=== PATIENT | male | born 2000 ===

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

== ENCOUNTER 2021-05-20 08:14 | Emergency (ER) | payer OTHER, SELFPAY ==
[2021-05-20 09:49] VITALS: BP 101/59; PULSE 52; RESP 16; TEMP 36.5; O2SAT 99; BMI 25.2
--- NOTE | 2021-05-20 10:57 | ED.BACK ---
HPI - Back Pain/Injury General Chief Complaint: Back Pain/Injury Stated Complaint: back pain Time Seen by Provider: 05/20/21 10:55 Source: patient Mode of arrival: ambulatory Limitations: no limitations History of Present Illness HPI Narrative: Patient presents ED for chronic lower back pain. Patient states since 15 years old after falling he has had chronic back pain ever since and on the left side back pain go down left leg. Patient denies any recent trauma, any abdominal pain, nausea, vomiting, fever, chills, dysuria, hematuria, testicular pain, or flank pain. Patient denies any urinary/bowel incontinence Related Data Previous Rx's Medication Instructions Recorded cyclobenzaprine 10 mg PO TID PRN #18 tab 05/20/21 naproxen 500 mg PO BID PRN #20 tab 05/20/21 Allergies Allergy/AdvReac Type Severity Reaction Status Date / Time No Known Allergies Allergy Verified 05/20/21 09:49 Review of Systems Review of Systems: Yes all other systems are reviewed and are negative Constitutional: Constitutional: Reports as per HPI and Reports no additional constitutional complaints Eyes: Eyes: Reports as per HPI and Reports no additional eye complaints ENT: Reports system reviewed and no additional complaints, except as documented and Reports as per HPI Cardiovascular: Cardiovascular: Reports as per HPI and Reports no additional cardiovascular complaints Respiratory: Respiratory: Reports as per HPI and Reports no additional respiratory complaints Gastrointestinal: Gastrointestinal: Reports as per HPI and Reports no additional gastrointestinal complaints Genitourinary: Genitourinary: Reports no additional male genitourinary complaints and Reports as per HPI Musculoskeletal: Musculoskeletal: Reports no additional musculoskeletal complaints, Reports as per HPI and Reports back pain Neurologic: Reports system reviewed and no additional complaints, except as documented and Reports as per HPI [facility] Social History Social History Alcohol intake: never Advance Directives: No Advance Directives Information Provided: No Physical Exam Vital Signs: Vital Signs: Last Vital Signs Temp 97.7 F 05/20/21 09:49 Pulse 52 05/20/21 09:49 Resp 16 05/20/21 09:49 BP 101/59 L 05/20/21 09:49 Pulse Ox 99 05/20/21 09:49 Body Mass Index 25.2 Const: General: cooperative, healthy appearing, comfortable, no acute distress, well developed, alert and awake HENMT: Head: Yes normal to inspection, Yes No palpable skull fracture present, Yes normocephalic and Yes atraumatic Eyes: General: appearance normal, both eyes and all related structures Neck: Neck: Yes normal visual inspection, Yes full ROM, Yes no lymphadenopathy, Yes no meningeal signs, Yes trachea midline, Yes supple and No tender Chest: Chest palpation & inspection: normal inspection of the chest and normal palpation of entire chest wall Resp: Effort & Inspection: normal respiratory effort and able to speak in complete sentences Auscultation: clear to auscultation bilaterally Cardio: Jugular venous distension: no JVD Heart sounds: S1 normal heart sound present and S2 normal heart sound present GI: Inspection: Yes normal to inspection and No abdominal wall ecchymosis Palpation (GI): Soft to palpation, not firm, nontender, no guarding and not rigid : General: No CVA tenderness and Yes no CVA tenderness Back/Spine/Pelvis: Back: no CVA tenderness, No CVA tenderness and back tenderness (Left lower lateral lumbar area. Negative for spine tenderness) Skin: General skin exam: no rashes or lesions noted and elasticity normal Neuro: General: patient oriented x3, gait normal, no meningeal signs and CN's II-XI intact bilaterally Cranial nerves: Yes CN's II-XII intact bilaterally Extrem: General: Yes normal to inspection and Yes full ROM Psych: Appearance: grossly normal, well kempt and not disheveled Course Course Course Narrative: No need for imaging. Patient denies any recent trauma. Reevaluation(s) Reevaluation #1: Patient will be discharged with naproxen and Flexeril. Patient told to follow up with PCP Time: 11:02 MDM - Back Pain/Injury MDM Narrative Medical decision making narrative: Chronic back pain. Sciatica Discharge Plan Discharge Clinical Impression: Sciatica, Chronic back pain Patient Disposition: Home, Self-Care Instructions: Sciatica (ED), Chronic Back Pain (DC) Additional Instructions: Please follow-up with your PCP. Return to the ED for worsening pain, urinary/bowel incontinence, abdominal pain, nausea, vomiting, fever, chills, flank pain, dysuria, hematuria, testicular pain, or any other concerning symptoms. Prescriptions: New naproxen 500 mg tablet 500 mg PO BID PRN (Reason: pain) Qty: 20 RF: 0 cyclobenzaprine 10 mg tablet 10 mg PO TID PRN (Reason: pain) Qty: 18 RF: 0 Stand Alone Forms: Work/School Release Interventions: ED Discharge Assessment Last Done: 05/20/21 11:19 Discharge Date/Time: 05/20/21 11:20 Print Language: Wolof
== END 2021-05-20 11:20 | disposition home or self-care (01) ==
PROVIDERS: Emergency Provider Emergency Medicine Emergency Medical Services
DX: G89.29 Other chronic pain (principal); M54.42 Lumbago with sciatica, left side
CPT/HCPCS: 99283

== ENCOUNTER 2021-09-28 16:43 | Emergency (ER) | payer OTHER, SELFPAY | END 2021-09-28 20:41 | disposition left against medical advice (07) | LOC: HO.ED 20:34 | PROVIDERS: Emergency Provider Emergency Medicine | DX: R68.89 Other general symptoms and signs (principal) ==

== ENCOUNTER 2021-09-29 17:21 | Emergency (ER) | payer OTHER, SELFPAY ==
--- NOTE | ~2021-09-29 | XR_ITS ---
EXAMINATION: XR CHEST CLINICAL INFORMATION: Cough COMPARISON: 08/31/2020 TECHNIQUE: Frontal view of the chest was obtained. FINDINGS: No significant abnormality is noted involving the heart, lungs, mediastinum, bony thorax or soft tissues. XR/XR chest 1V IMPRESSION: Unremarkable examination.
[2021-09-29 19:19] VITALS: BP 101/51; PULSE 85; RESP 16; TEMP 36.7; O2SAT 99; BMI 25.7
[2021-09-29 19:45] LABS: IDNOW Serial# 9DD0AD1C; Strep A Nucleic Acid Negative (Negative)
[2021-09-29 19:47] LABS: COVID-19 Test Negative (Negative)
[2021-09-29] MEDS: Acetaminophen 325 MG TABLET 650 MG PO (21:22)
[2021-09-29 23:11] VITALS: BP 121/61; PULSE 72; RESP 16; TEMP 37.1; O2SAT 98
--- NOTE | 2021-09-29 23:22 | ED.GENADULT ---
HPI - General Adult General Chief complaint: General Medical Stated complaint: Flu like symptoms Time Seen by Provider: 09/29/21 23:15 History of Present Illness HPI narrative: Patient complains of body aches feeling fatigued runny nose mild cough and is concerned because his brother who he has been around a lot is positive for COVID He has no shortness of breath or vomiting Related Data Previous Rx's Medication Instructions Recorded cyclobenzaprine 10 mg tablet 10 mg PO TID PRN #18 tab 05/20/21 naproxen 500 mg tablet 500 mg PO BID PRN #20 tab 05/20/21 Allergies Allergy/AdvReac Type Severity Reaction Status Date / Time No Known Allergies Allergy Verified 05/20/21 09:49 Review of Systems Review of Systems: Positive for runny nose body aches fatigue and cough Negatives are no fever no chills no dizziness no weakness no fainting no feeling faint no headache no stiff neck no sore throat no sinus pain no chest pain no shortness of breath no sputum no abdominal pain no nausea vomiting or diarrhea no skin rash Yes all other systems are reviewed and are negative PMFSH Past Medical History Source: nursing notes reviewed Social History Social History Alcohol intake: never Advance Directives: No Advance Directives Information Provided: No Physical Exam Vital Signs: Vital Signs: Last Vital Signs Temp 98.7 F 09/29/21 23:11 Pulse 72 09/29/21 23:11 Resp 16 09/29/21 23:11 BP 121/61 09/29/21 23:11 Pulse Ox 98 09/29/21 23:11 BMI result Body Mass Index 25.7 General appearance is no acute distress The eyes are clear with no redness or exudate The sinuses are nontender The pharynx is clear with no redness swelling or exudate, voice is normal, mucous membranes are moist Neck is supple Chest is clear to auscultation bilateral Heart no murmur Abdomen soft nontender Extremities full range of motion x4 Skin rash Course Course Course Narrative: COVID test was negative Strep test was negative Chest x-ray was normal no infiltrate Well-appearing patient was discharged Medical Decision Making Lab Data Labs: Lab Results 09/29/21 09/29/21 Range/Units 19:28 19:28 COVID-19 (ANAIS) Negative (Negative) COVID-19 Clin Com See Note S. pyogenes GrpA YOANNA Negative (Negative) Discharge Plan Discharge Clinical Impression: Acute viral syndrome Patient Disposition: Home, Self-Care Additional Instructions: COVID testing was negative for today, but because you had close exposure with someone who had COVID it may be too soon to get a positive results There is still a good chance he might have COVID so I would recommend isolating as best possible, wear mask when around other people and get another test in a few days Return to the ER any time for difficulty breathing any worse condition or any concerns Drink plenty of fluids and Tylenol or Motrin as needed for any fever or body aches Prescriptions: No Action naproxen 500 mg tablet 500 mg PO BID PRN (Reason: pain) Qty: 20 RF: 0 cyclobenzaprine 10 mg tablet 10 mg PO TID PRN (Reason: pain) Qty: 18 RF: 0
== END 2021-09-30 00:36 | disposition home or self-care (01) ==
PROVIDERS: Emergency Provider Emergency Medicine Emergency Medical Services
DX: B34.9 Viral infection, unspecified (principal); Z20.822 Contact with and (suspected) exposure to COVID-19; M79.10 Myalgia, unspecified site
CPT/HCPCS: 36415; 71045; 87635; 87651; 99283; 99284

== ENCOUNTER 2022-06-14 13:55 | Emergency (ER) | payer MEDICAID, SELFPAY ==
[2022-06-14 16:35] VITALS: BP 128/71; PULSE 94; RESP 16; TEMP 38.1; O2SAT 98; BMI 21.6
[2022-06-14] MEDS: Acetaminophen 325 MG TABLET 650 MG PO (16:42)
[2022-06-14 16:58] LABS: COVID-19 Test Positive (Negative)
[2022-06-14 17:01] LABS: Appearance Urine Clear; Color Urine Yellow; Glucose Urine UA Negative (Negative); Leukocyte Esterase Urine Negative (Negative); Nitrite Urine Negative (Negative); PH 6.5 (5.0-8.0); Specific Gravity - Urine >= 1.030 (1.005-1.025); Urine Blood Negative (Negative); Urine Ketones 80 mg/dL (Negative); Urine Protein 30 (1+) mg/dL (Neg-Trace)
[2022-06-14 17:03] LABS: Bacteria Urine None Seen (None Seen); Hyaline Casts Urine 0-2 /LPF (0-2); Squamous Epithelial Cell Urine 0-2 /HPF (0-2); WBC Urine 0-5 /HPF (0-5)
--- NOTE | 2022-06-14 19:08 | ED_ITS ---
HPI - Headache General Chief Complaint: Headache Stated Complaint: migraine, lower back pain, pain in legs Time Seen by Provider: 06/14/22 19:08 Source: patient Mode of arrival: ambulatory Limitations: no limitations History of Present Illness HPI Narrative: 22-year-old healthy male presents to the ER for evaluation back pain and headache. He reports the pain started after playing basketball yesterday. He frequently gets back pains after he does physical activity but this feels different. He states the pain is to the right of his spine and goes from the lower back all the way up. It is worse with movement and rotation. He denies any falls or trauma. He denies any urinary symptoms. He is going to be febrile in triage. He also reports a headache. MD elicited complaint: headache and other (Back pain) Onset (ago): day(s) (1) Onset description: gradually Location: generalized Severity: moderate Quality & Timing: aching and throbbing Exacerbating factors: none Relieving factors: nothing Associated symptoms: fever Treatments prior to arrival: none Related Data Previous Rx's Medication Instructions Recorded cyclobenzaprine 10 mg tablet 10 mg PO TID PRN pain #18 tabs 05/20/21 naproxen 500 mg tablet 500 mg PO BID PRN pain #20 tabs 05/20/21 Allergies Allergy/AdvReac Type Severity Reaction Status Date / Time No Known Allergies Allergy Verified 05/20/21 09:49 Review of Systems Review of Systems: Constitutional: No Fever, No Chills ENT/Mouth: No sore throat, No Rhinorrhea, No Swallowing Difficulty Cardiovascular: No Chest Pain, No SOB, No Orthopnea, No Edema Respiratory: No Cough, No Sputum Gastrointestinal: No Nausea, No Vomiting, No Diarrhea, No abdominal Pain Genitourinary: No Dysuria, No Urinary Frequency, No Hematuria Musculoskeletal: No joint pain, + Myalgias Skin: No Skin Lesions, No rash Neuro: No Weakness, No Numbness, No Dizziness, +Headache Psych: No Anxiety/Panic, No Depression Heme/Lymph: No Bruising, No Lymphadenopathy Endocrine: No Polyuria, No Polydipsia PMFSH Social History Social History Alcohol intake: never Advance Directives: No Advance Directives Information Provided: No Physical Exam Vital Signs: Vital Signs: Last Vital Signs Temp 100.5 F H 06/14/22 16:35 Pulse 94 06/14/22 16:35 Resp 16 06/14/22 16:35 BP 128/71 06/14/22 16:35 Pulse Ox 98 06/14/22 16:35 O2 Del Method 06/14/22 16:35 BMI result Body Mass Index 21.6 Appearance: Alert. Oriented X3. No acute distress. Eyes: Pupils equal, round and reactive to light. ENT: Pharynx normal. Neck: Normal inspection. Neck supple. CVS: Normal heart rate and rhythm. Pulses normal. Respiratory: No respiratory distress. Breath sounds normal. Back: Normal inspection. Soft tissue tenderness and spasm to the right paraspinous muscles. No midline tenderness. Pain with rotation to the left. No CVA tenderness. Skin: Skin warm and dry. Normal skin color. Normal skin turgor. No rashes. Extremities: No lower extremity edema. Neuro: Oriented X 3. No motor deficit. No sensory deficit. Steady gait. Course Course Course Narrative: 22-year-old male presents to the ER with back pain, headache, found to have low- grade fever in triage. He has no urinary symptoms. His back pain is consistent muscle strain and spasm, palpable spasm on examination. He was found to be COVID positive. His symptoms are very mild. He is stable for discharge home with NSAID and muscle relaxer. Stable for DC MDM - Headache Lab Data Labs: Lab Results 06/14/22 06/14/22 Range/Units 16:41 16:49 Urine Color Yellow Urine Appearance Clear Urine pH 6.5 (5.0-8.0) Ur Specific [place] >= 1.030 H (1.005-1.025) Urine Protein 30 (1+) H (Neg-Trace) mg/dL Urine Glucose (UA) Negative (Negative) mg/dL Urine Ketones 80 (Negative) mg/dL Urine Blood Negative (Negative) Urine Nitrite Negative (Negative) Ur Leukocyte Esterase Negative (Negative) Urine RBC 3-5 H (0-2) /HPF Urine WBC 0-5 (0-5) /HPF Ur Squamous Epith Cells 0-2 (0-2) /HPF Urine Bacteria None Seen (None Seen) Hyaline Casts 0-2 (0-2) /LPF COVID-19 (ANAIS) Positive A (Negative) COVID-19 Clin Com See Note Critical Care Time Critical Care Time Critical Care Time: No Discharge Plan Discharge Clinical Impression: COVID-19, Muscle spasm, Lumbar strain Patient Disposition: Home, Self-Care Instructions: Covid-19 Viral Syndrome and Novel Coronavirus (ED) Hey/Ath, Low Back Strain (ED), Lower Back Exercises (ED) Additional Instructions: Your found to be COVID-19 positive today. Drink plenty of fluids. Take Tylenol around the clock for fevers and back pain. Take [id number] cold and flu medicine as needed for your symptoms. Rest. No strenuous activity. No bending, lifting or twisting. Use ice several times per day for 20 minutes at a time for the next 48 hours and then change to heat. Take medications as prescribed to help with pain and discomfort. Follow up with your Primary Care Doctor this week. If you develop new or worsening symptoms call 911 or come back to the ER for further evaluation. Prescriptions: No Action naproxen 500 mg tablet 500 mg PO BID PRN (Reason: pain) Qty: 20 0RF cyclobenzaprine 10 mg tablet 10 mg PO TID PRN (Reason: pain) Qty: 18 0RF Rx Instructions: side effect is drowsiness. Do not take at work or while driving. Interventions: ED Discharge Assessment Last Done: 06/14/22 19:41 Discharge Date/Time: 06/14/22 19:42
[2022-06-14] MEDS: Ibuprofen 600 MG TABLET PO (19:38)
[2022-06-14] MEDS: Cyclobenzaprine HCl 10 MG TABLET PO (19:38)
== END 2022-06-14 19:42 | disposition home or self-care (01) ==
PROVIDERS: Emergency Provider Emergency Medicine
DX: U07.1 COVID-19 (principal); G43.909 Migraine, unspecified, not intractable, without status migrainosus; M54.50 Low back pain, unspecified; Z79.899 Other long term (current) drug therapy
CPT/HCPCS: 81001; 81003; 87635; 99283

== ENCOUNTER 2022-08-16 16:46 | Emergency (ER) | payer OTHER, SELFPAY ==
--- NOTE | ~2022-08-16 | XR_ITS ---
EXAMINATION: XR ANKLE, RIGHT CLINICAL INFORMATION: Fall pain in right ankle COMPARISON: X-rays July 2016 TECHNIQUE: AP, lateral, and mortise views of the right ankle. FINDINGS: The bones and soft tissues are normal. No fracture. Alignment is anatomic. Joint spaces are maintained. No joint effusion. XR/XR ankle RT 2V IMPRESSION: Normal right ankle.
[2022-08-16 18:33] VITALS: BP 115/46; PULSE 63; RESP 18; TEMP 36.8; O2SAT 97; BMI 22.4
--- NOTE | 2022-08-16 19:28 | ED_ITS ---
HPI - Extremity Injury (Lower) General Chief Complaint: Extremity Injury, Lower Stated Complaint: Ankle injury at work Time Seen by Provider: 08/16/22 19:26 Source: patient Mode of arrival: ambulatory Limitations: no limitations History of Present Illness HPI Narrative: This is a 22-year-old male no significant medical history presents to the emergency department complaints of right ankle pain patient tells me yesterday he was walking up some stairs his right ankle gave out, ruled out words, at that time he was carrying a 50 lb box he reports that he immediately started experiencing pain and swelling to the right ankle. He tells me he has broken this ankle in the past so he is worried maybe he had a broken ankle again. Reports pain with ambulation, better at rest. Tells me he has been ambulatory since the injury however ambulating with a limp. Denies numbness or tingling. Related Data Previous Rx's Medication Instructions Recorded cyclobenzaprine 10 mg tablet 10 mg PO TID PRN pain #18 tabs 05/20/21 naproxen 500 mg tablet 500 mg PO BID PRN pain #20 tabs 05/20/21 Allergies Allergy/AdvReac Type Severity Reaction Status Date / Time No Known Allergies Allergy Verified 08/16/22 18:33 Review of Systems Review of Systems: Constitutional : No Weight loss, No Fever, No Chills, No Fatigue, No Malaise ENT/Mouth : No sore throat, No Rhinorrhea Eyes: No Eye Pain, No Swelling, No Redness Cardiovascular : No Chest Pain, No SOB, No Dyspnea on Exertion, No Orthopnea, No Edema, No Palpitations Respiratory : No Cough, No Sputum, No Wheezing Gastrointestinal : No Nausea, No Vomiting, No Diarrhea, No Constipation, No abdominal Pain, No Hematochezia, No Melena Genitourinary : No Dysuria, No Urinary Frequency, No Hematuria, Musculoskeletal : + joint pain, No Myalgias, + Joint Swelling Skin : No Skin Lesions, No rash Neuro : No Weakness, No Numbness, No Dizziness, No Headache All other systems reviewed and are negative Yes all other systems are reviewed and are negative [facility] Past Medical History Attestation statement: The following information was validated with the patient. Source: old records reviewed and nursing notes reviewed Social History Social History Alcohol intake: never Advance Directives: No Advance Directives Information Provided: No Physical Exam Vital Signs: Vital Signs: Last Vital Signs Temp 98.3 F 08/16/22 18:33 Pulse 63 08/16/22 18:33 Resp 18 08/16/22 18:33 BP 115/46 L 08/16/22 18:33 Pulse Ox 97 08/16/22 18:33 O2 Del Method 08/16/22 18:33 BMI result Body Mass Index 22.4 vss Appearance: Alert.? Oriented X3.? No acute distress.? Head: Normocephalic, atraumatic, no step-offs or deformities Eyes: Pupils equal, round and reactive to light.? CVS: Normal heart rate and rhythm.? Pulses normal.? Respiratory: No respiratory distress.? Breath sounds normal.? Abdomen: Soft and nontender.? Skin: Skin warm and dry.? Normal skin color.? Normal skin turgor.? Extremities: 5/5 strength to bilateral upper and lower extremities full range of motion to bilateral ankles however painful range of motion to right ankle. There is swelling noted overlying the right ankle. Pain with palpation to medial and lateral malleolus of right ankle. Normal left ankle. 2+ dorsalis pedis anterior tibialis and posterior tibialis pulses. Normal sensation to bilateral lower extremities. Capillary refill less than 2 seconds to bilateral lower extremities. Patient ambulating with a limp favoring his left side. No foot drop. DTR 2+ b/l Neuro: Oriented X 3.? No motor deficit.? No sensory deficit. CN 2-12 intact Course Reevaluation(s) Reevaluation #1: Normal x-ray of the right ankle. At this time patient will be discharged home with an Aircast, crutches. Advised to return with new or worsening symptoms educated him on rice, advised to follow-up with orthopedics. Comfortable discharge home. Time: 19:32 MDM - Extremity Injury (Lower) [facility] Narrative Medical decision making narrative: 1929 22 year old male presents with right ankle pain sp rolling ankle at work Right ankle with overlying swelling and pain with palpation of medial and lateral malleolus. Normal pulses. Normal capillary refill. Neurovascularly intact. Concerns for sprain versus strain. Unlikely fracture dislocation. Plan at this time is to obtain plain film Medical Records Attestation: I reviewed the patient's medical records. Lab Data Attestation: I reviewed the patient's lab results. Critical Care Time Critical Care Time Critical Care Time: No Discharge Plan Discharge Clinical Impression: Ankle sprain and strain, Work related injury Patient Disposition: Home, Self-Care Instructions: Ankle Sprain (ED), Ankle Stirrup Splint (ED), R.I.C.E. Treatment (ED), Ice Pack Application (ED) Additional Instructions: Take your medications as prescribed. If you were prescribed antibiotics today, it is important that you take your medication to their entirety, do not skip any doses, do not finish them early. Follow-up with your primary care provider this week. Return to the emergency department with new or worsening symptoms. Such as fevers, chills, chest pain, shortness of breath, nausea, vomiting, dizziness, headache, vision changes, lethargy, numbness, tingling In case of emergency call 911 Your x-ray shows no acute fractures, dislocations. If pain persists she may require an MRI to look for ligament or tendon injury. Rest, ice, compress, elevate extremity. You can take ibuprofen every 6 hours, Tylenol every 4 as needed for pain or discomfort. Use crutches as indicated. Wear your Aircast during the day, do not sleep with it on. Use for 5-7 days Follow up with the work connection as this was a work related injury XR/XR ankle RT 2V IMPRESSION: Normal right ankle. Prescriptions: No Action naproxen 500 mg tablet 500 mg PO BID PRN (Reason: pain) Qty: 20 0RF cyclobenzaprine 10 mg tablet 10 mg PO TID PRN (Reason: pain) Qty: 18 0RF Rx Instructions: side effect is drowsiness. Do not take at work or while driving. Referrals: Physician,None [Physician] - [facility] [place] [facility] [Provider Group] - 1 week Stand Alone Forms: Work/School Release
[2022-08-16] MEDS: Acetaminophen 325 MG TABLET 650 MG PO (20:12)
== END 2022-08-16 20:17 | disposition home or self-care (01) ==
PROVIDERS: Emergency Provider Internal Medicine; PCP Pediatrics
DX: S93.401A Sprain of unspecified ligament of right ankle, initial encounter (principal); W10.9XXA Fall (on) (from) unspecified stairs and steps, initial encounter; Y93.9 Activity, unspecified; Y92.9 Unspecified place or not applicable; Y99.0 Civilian activity done for income or pay; Z79.899 Other long term (current) drug therapy
CPT/HCPCS: 73600; 99283

== ENCOUNTER 2023-01-13 21:10 | Emergency (ER) | payer OTHER, SELFPAY ==
[2023-01-13 21:42] VITALS: BP 116/71; PULSE 91; RESP 18; TEMP 38.4; O2SAT 98; BMI 21.6
[2023-01-13] MEDS: Acetaminophen 325 MG TABLET 975 MG PO (21:56)
[2023-01-13 22:35] LABS: Influenza A PCR NEGATIVE (Negative); Influenza B PCR NEGATIVE (Negative); Resp Syncy Virus RNA Qual PCR NEGATIVE (Negative); SARS COV2 PCR INHOUSE POSITIVE (Negative)
--- OUTSIDE RECORDS SUMMARY | 2023-01-14 00:19 | XMS_ITS | Referral Summary ---
:2000 Author Organization [facility] Address [address] [place] [id number] Care Team Providers Name Role Phone Aries Martinez MD, Rey Waters Primary Care Physician [phone] Encounter FIN Number [id number] Date(s): 02/24/21 - 05/02/[address] [id number] [facility] [phone] Discharge Disposition: 01 Home (with or w/o IV fusion or DME) Attending Physician: Giuseppe Villalta MD Allergies, Adverse Reactions, Alerts Substance Reaction Severity Status penicillin rash Severe Active cefepime rash Severe Active cephalosporins rash Severe Active Medications Adderall XR 10 mg oral capsule, extended release 1 cap(s), 10 mg, Capsule Extended Release, Oral, QAM, Number of Refills: 0 Start Date: 04/01/18 Status: Ordered Problem List Condition Effective Dates Status 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
--- OUTSIDE RECORDS SUMMARY | 2023-01-14 00:19 | XMS_ITS | Referral Summary ---
:2000 Author Organization Address [address] [place] [id number] Care Team Providers Name Role Phone PCP, None Primary Care Physician Unavailable Encounter FIN Number [id number] Date(s): 05/11/22 - 05/11/[address] [address] [facility] [phone] Discharge Disposition: 01 Home (with or w/o IV fusion or DME) Attending Physician: Giuseppe Villalta MD Allergies, Adverse Reactions, Alerts Substance Reaction Severity Status penicillin rash Severe Active cefepime rash Severe Active cephalosporins rash Severe Active Medications No Known Medications Problem List Condition Effective Dates Status 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) Diagnosis Diagnosis Type Effective Dates Health Clinical Infor mant Status Service Transverse Working 05/11/22 Non-Specified deficiency lower Diagnosis limb - knee level Vital Signs Most recent to oldest [Reference Range]: 1 Height 166.8 cm (05/11/22 10:14 AM) Height NOT Growth Chart 166.8 cm (05/11/22 10:14 AM) Converted Height NOT Growth Chart 5.5 ft (05/11/22 10:14 AM) Weight 59.8 kg (05/11/22 10:14 AM) Weight NOT Growth Chart 59.8 kg (05/11/22 10:14 AM) Converted Weight NOT Growth Chart 131.84 lb(s) (05/11/22 10:14 AM) Body Mass Index 21.49 kg/m2 (05/11/22 10:14 AM) Body Mass Index NOT Growth Chart 21 (05/11/22 10:14 AM) Body surface area 1.6646 m2 (05/11/22 10:14 AM) Social History Social History Type Response Smoking Status Never smoker; Type: Cigarett es entered on: 05/11/14 Sex Male
--- OUTSIDE RECORDS SUMMARY | 2023-01-14 00:19 | XMS_ITS | Referral Summary ---
:2000 Author Organization [facility] Address [address] [place] [phone] Care Team Providers Name Role Phone Aries Martinez MD, Rey Waters Primary Care Physician Encounter FIN Number [id number] Date(s): 02/24/21 - 05/02/[address] [address] [facility] [phone] Discharge Disposition: 01 Home (with or w/o [...]
--- OUTSIDE RECORDS SUMMARY | 2023-01-14 00:19 | XMS_ITS | Referral Summary ---
:[address] [facility] Address [address] [place] [phone] Care Team Providers Name Role Phone Aries Martinez MD, Rey Waters Primary Care Physician Encounter FIN Number [id number] Date(s): 02/24/21 - 05/02/[address] [address] [facility] [phone] Discharge Disposition: 01 Home (with or w/o [...]
--- OUTSIDE RECORDS SUMMARY | 2023-01-14 00:19 | XMS_ITS | Referral Summary ---
:2000 Author Organization [facility] Address [address] [place] [phone] Care Team Providers Name Role Phone Aries Martinez MD, Rey Waters Primary Care Physician Encounter FIN Number [id number] Date(s): 02/24/21 - 05/02/[address] [address] [facility] [phone] Discharge Disposition: 01 Home (with or w/o [...]
--- OUTSIDE RECORDS SUMMARY | 2023-01-14 00:19 | XMS_ITS | Continuity of Care Document ---
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
1 Active [facility] aspartate 2.5 MG / cap(s), [facility] Amphetamine Sulfate mg, 2.5 MG / Capsule Dextroamphetamine Extended saccharate 2.5 MG / Release, Dextroamphetamine Oral, QAM, Sulfate 2.5 MG Number of Extended Release Refills: 0 Capsule [Adderall] Allergies, Adverse Reactions, Alerts Substance Category Reaction Severity Reaction Status Date Comments S ource type Reported penicillin Drug rash Active [facility] cefepime Drug rash Active [facility] cephalosporins Drug rash Active [facility] Immunizations Immunization Date Given Site Status Last Updated Comments Mónica rce Results Order Name Results Value Reference Range Date Interpretation Commen ts Source Vital Signs Vital Sign Value Date Comments Source Height NOT Growth Chart 166.8 cm 05/11/2022 [facility] Converted Height NOT 5.5 [ft_i] 05/11/2022 [facility] Growth Chart Weight NOT Growth Chart 59.8 kg 05/11/2022 [facility] Body surface area 1.6646 m2 05/11/2022 [facility] Converted Weight NOT 131.84 [lb_ap] 05/11/2022 [facility] Growth Chart Body Mass Index NOT 21 05/11/2022 [facility] Growth Chart Height in cms. 166.8 cm 05/11/2022 [facility] Weight in kgs 59.8 kg 05/11/2022 [facility] Body Mass Index 21.49 kg/m2 05/11/2022 [facility] Encounters Location Location Encounter Encounter Reason Attending ADM DC Stat us Source Details Type Number For Provider Date Date Visit [facility] [id number] Giuseppe 02/24 05/03 [facility] Ambar WILDER /[address] [facility] [id number] Giuseppe 05/11 05/12 [facility] Ambar WILDER /2021 [facility] Procedures Procedure Code Date Perfomer Comments Source
--- OUTSIDE RECORDS SUMMARY | 2023-01-14 00:19 | XMS_ITS | Referral Summary ---
:2001 Author Organization [facility] Address [address] [place] [phone] Care Team Providers Name Role Phone PCP, None Primary Care Physician Unavailable Encounter FIN Number [id number] Date(s): 05/11/22 - 05/11/[address] [address] [facility] [phone] Discharge Disposition: 01 Home (with or w/o [...]
--- NOTE | 2023-01-14 00:26 | ED.GENADULT ---
HPI - General Adult General Chief complaint: Fever Stated complaint: Covid Symptoms/+Test at home Time Seen by Provider: 01/14/23 00:26 Source: patient Mode of arrival: ambulatory Limitations: no limitations History of Present Illness HPI narrative: Patient comes emergency room complaining of 24 hours body aches, runny nose, subjective fever, patient had a positive COVID test at home. Denies nausea vomiting or diarrhea. Related Data Previous Rx's Medication Instructions Recorded cyclobenzaprine 10 mg tablet 10 mg PO TID PRN pain #18 tabs 05/20/21 naproxen 500 mg tablet 500 mg PO BID PRN pain #20 tabs 05/20/21 ibuprofen 600 mg tablet 600 mg PO TID PRN fever or pain 01/14/23 #20 tabs nirmatrelvir 300 mg (150 mg See Rx Instructions PO .COMPLEX 01/14/23 x2)-ritonavir 100 mg tablet,dose #30 ea pack(EUA) (Paxlovid) Allergies Allergy/AdvReac Type Severity Reaction Status Date / Time No Known Allergies Allergy Verified 08/16/22 18:33 Review of Systems Review of Systems: Constitutional : No Weight loss, complaining of subjective fever and chills No Night Sweats, No Fatigue, complaining of body aches ENT/Mouth : No Hearing loss, No Ear Pain, No Nasal Congestion, No Sinus Pain, No Hoarseness, complaining of sore throat, No Rhinorrhea, No Swallowing Difficulty Eyes: No Eye Pain, No Swelling, No Redness, No Foreign Body, No Discharge, No Vision Changes Cardiovascular : No Chest Pain, No SOB, No Dyspnea on Exertion, No Orthopnea, No Edema, No Palpitations Respiratory : No Cough, No Sputum, No Wheezing, No Smoke Exposure, No Dyspnea Gastrointestinal : No Nausea, No Vomiting, No Diarrhea, No Constipation, No abdominal Pain, No Hematochezia, No Melena Genitourinary : no irregular bleeding, No Dysuria, No Urinary Frequency, No Hematuria, No Urinary Incontinence, No Urgency, No Flank Pain, No Urinary Flow Changes, No Hesitancy Musculoskeletal : No joint pain, No Myalgias, No Joint Swelling Skin : No Skin Lesions, No rash Neuro : No Weakness, No Numbness, No Paresthesias, No Loss of Consciousness, No Dizziness, No Headache Psych : No Anxiety/Panic, No Depression, No SI/HI/AH/VH, No Social Issues, Heme/Lymph: No Bruising, No Bleeding,No Lymphadenopathy Endocrine : No Polyuria, No Polydipsia, No Temperature Intolerance [facility] Social History Social History Alcohol intake: never Advance Directives: No Physical Exam ED Vital Signs: Vital Signs - 24 hr 01/13/23 21:42 Temperature 101.1 F H Pulse Rate 91 Respiratory Rate 18 Blood Pressure 116/71 Pulse Oximetry 98 Oxygen Delivery Method Room Air BMI result Body Mass Index 21.6 Const Other: Appearance: Alert. Oriented X3. No acute distress. Well appearing Eyes: Pupils equal, round and reactive to light. ENT: Pharynx normal. Neck: Normal inspection. Neck supple. No lymph nodes noted. No crepitus CVS: Normal heart rate and rhythm. Pulses normal. Normal S1 and S2 Respiratory: No respiratory distress. Breath sounds normal. No Wheezing. No rales Abdomen: Soft and nontender. No rigidity. No distention. Skin: Skin warm and dry. Normal skin color. Normal skin turgor. Extremities: No lower extremity edema. No Lacerations. No Rash Neuro: Oriented X 3. No motor deficit. No sensory deficit. Moving all extremities. No slurred speech. CN 2 through 12 grossly intact Psych: calm, cooperative, normal affect Medications Administered Discontinued Medications Generic Name Dose Route Start Last Admin Trade Name Freq PRN Reason Stop Dose Admin Acetaminophen 975 mg 01/13/23 21:51 01/13/23 21:56 Acetaminophen 325 Mg Tablet PO 01/13/23 21:52 975 mg ONCE ONE Administration Medical Decision Making Medical Decision Making MDM Narrative: -patient tested positive for COVID-19 -symptoms have been present for almost 24 hours -p.o. Tylenol given. -discussed with the patient to treat him with Paxlovid vs symptomatic, would like to proceed with the antiviral medication Differential Diagnosis Differential Diagnoses: The differential diagnosis associated with the presentation includes (Viral syndrome, influenza, COVID) Lab Data Labs: Lab Results 01/13/23 Range/Units 21:50 Influenza Type A (PCR) NEGATIVE (Negative) Influenza Type B (PCR) NEGATIVE (Negative) RSV RNA Qual (PCR) NEGATIVE (Negative) SARS-CoV-2 RNA (RT-PCR) POSITIVE A (Negative) Discharge Plan Discharge Clinical Impression: COVID-19 Patient Disposition: Home, Self-Care Instructions: COVID-19 (Coronavirus Disease 2019) (ED) Additional Instructions: Please follow-up with your primary care physician tomorrow. If you have any worsening or new symptoms, please return to the emergency room or call 911 Prescriptions: New Paxlovid (EUA) 300 mg (150 mg x 2)-100 mg tablets,dose pack See Rx Instructions .ROUTE .COMPLEX Qty: 30 0RF Rx Instructions: take TWO 150 mg tablets of nirmatrelvir with ONE 100 mg tablet of ritonavir twice daily for 5 days ibuprofen 600 mg tablet 600 mg PO TID PRN (Reason: fever or pain) Qty: 20 0RF No Action naproxen 500 mg tablet 500 mg PO BID PRN (Reason: pain) Qty: 20 0RF cyclobenzaprine 10 mg tablet 10 mg PO TID PRN (Reason: pain) Qty: 18 0RF Rx Instructions: side effect is drowsiness. Do not take at work or while driving. Stand Alone Forms: Work/School Release
[2023-01-14 00:48] VITALS: BP 105/53; PULSE 80; RESP 16; TEMP 36.8; O2SAT 98
== END 2023-01-14 00:57 | disposition home or self-care (01) ==
PROVIDERS: Emergency Provider Emergency Medicine
DX: U07.1 COVID-19 (principal)
CPT/HCPCS: 0241U; 99283; 99284

== ENCOUNTER 2023-02-28 19:48 | Emergency (ER) | payer OTHER, SELFPAY ==
--- NOTE | ~2023-02-28 | XR_ITS ---
EXAMINATION: XR THORACIC SPINE CLINICAL INFORMATION: Low back pain. Injury. COMPARISON: None available. TECHNIQUE: 3 views of the thoracic spine were obtained. FINDINGS: There is no fracture or bone destruction seen and the vertebral alignment is normal. There is no disc space narrowing. There is no abnormality of the paraspinal soft tissues. XR/XR thoracic spine 3V IMPRESSION: Unremarkable examination.
--- NOTE | ~2023-02-28 | XR_ITS ---
EXAMINATION: XR LUMBOSACRAL SPINE CLINICAL INFORMATION: Low back pain. Trauma. COMPARISON: Lumbar spine radiograph 07/10/2013 TECHNIQUE: Three views of the lumbosacral spine. FINDINGS: The lumbosacral junction there is narrowing of the L5-S1 disc which is new when compared to prior study of 07/10/2023. There is also retrolisthesis of L5 on S1 by about 4 mm which is new since prior study as well. No displaced fracture. Vertebral body heights are normal. No spondylolysis. XR/XR lumbar spine 2-3V IMPRESSION: 1. 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 If there is pain referrable to this region further evaluation with CT or MRI would be helpful.
[2023-02-28 19:56] VITALS: BP 105/55; PULSE 95; RESP 18; TEMP 37.8; O2SAT 100; BMI 20.5
--- NOTE | 2023-02-28 19:56 | ED_ITS ---
HPI - Extremity Injury (Lower) General Chief Complaint: Back Pain/Injury <SAL Saldivar Last Filed: 02/28/23 20:02> Stated Complaint: lower back pain radiating to left arm <SAL Saldivar Last Filed: 02/28/23 20:02> Time Seen by Provider: 02/28/23 20:36 <SAL Saldivar Last Filed: 02/28/23 20:02> Source: patient <SAL Salazar Last Filed: 03/01/23 01:03> Mode of arrival: ambulatory <SAL Salazar Last Filed: 03/01/23 01:03> Limitations: no limitations <SAL Salazar Last Filed: 03/01/23 01:03> History of Present Illness HPI Narrative: Patient presents to the ED for lower back pain for couple days. Patient states couple days ago while doing pushups his friend stepped on his back and put his whole weight on his back. Patient states since than he has back pain that is worse on movement. Patient denies any abdominal pain, flank pain dysuria, hematuria, fever, chills, urinary/bowel incontinence, or IV drug use. <SAL Salazar Last Filed: 03/01/23 01:03> Related Data Home Medications: Previous Rx's Medication Instructions Recorded cyclobenzaprine 10 mg tablet 10 mg PO TID PRN pain #18 tabs 05/20/21 naproxen 500 mg tablet 500 mg PO BID PRN pain #20 tabs 05/20/21 ibuprofen 600 mg tablet 600 mg PO TID PRN fever or pain 01/14/23 #20 tabs nirmatrelvir 300 mg (150 mg See Rx Instructions PO .COMPLEX 01/14/23 x2)-ritonavir 100 mg tablet,dose #30 ea pack(EUA) (Paxlovid) cyclobenzaprine 10 mg tablet 10 mg PO BEDTIME PRN muscle spasm 03/01/23 7 days #7 tabs naproxen 500 mg tablet 500 mg PO BID PRN pain 7 days #14 03/01/23 tabs prednisone 20 mg tablet 40 mg PO DAILY 5 days #10 tabs 03/01/23 <SAL Saldivar Last Filed: 02/28/23 20:02> Allergies/Adverse Reactions: Allergies Allergy/AdvReac Type Severity Reaction Status Date / Time No Known Allergies Allergy Verified 02/28/23 19:56 <SAL Saldivar - Last Filed: 02/28/23 20:02> Review of Systems Review of Systems: Back pain worse on movement <SAL Salazar - Last Filed: 03/01/23 01:03> Yes all other systems are reviewed and are negative <SAL Salazar - Last Filed: 03/01/23 01:03> [facility] Social History Social History: Social History Alcohol intake: never Advance Directives: No Advance Directives Information Provided: Yes <SAL Saldivar - Last Filed: 02/28/23 20:02> Physical Exam Vital Signs: Vital Signs: Last Vital Signs Temp 100.0 F 02/28/23 19:56 Pulse 95 02/28/23 19:56 Resp 18 02/28/23 19:56 BP 105/55 L 02/28/23 19:56 Pulse Ox 100 02/28/23 19:56 O2 Del Method Room Air 02/28/23 19:56 BMI result Body Mass Index 20.5 <SAL Saldivar - Last Filed: 02/28/23 20:02> Vital Signs: Last Vital Signs Temp 100.0 F 02/28/23 19:56 Pulse 95 02/28/23 19:56 Resp 18 02/28/23 19:56 BP 105/55 L 02/28/23 19:56 Pulse Ox 100 02/28/23 19:56 O2 Del Method Room Air 02/28/23 19:56 BMI result Body Mass Index 20.5 <SAL Salazar - Last Filed: 03/01/23 01:03> Const: General: cooperative, healthy appearing, comfortable, no acute distress, well developed, alert, awake and Physically active <SAL Salazar - Last Filed: 03/01/23 01:03> Orientation/consciousness: oriented to person, oriented to place, oriented to time and patient oriented x3 <SAL Salazar Last Filed: 03/01/23 01:03> HEENT: Head: Yes normal to inspection, Yes No palpable skull fracture present, Yes normocephalic, Yes atraumatic and No abrasion <Felipe Keshawn, PA Quintin Last Filed: 03/01/23 01:03> Eyes: General: appearance normal, both eyes and all related structures <Felipe Keshawn, PA Last Filed: 03/01/23 01:03> Neck: Neck: Yes normal visual inspection, Yes full ROM, Yes no lymphadenopathy, Yes no meningeal signs, Yes trachea midline, Yes supple, No anterior neck swelling and No tender <Felipe Keshawn, PA Last Filed: 03/01/23 01:03> Chest: Chest palpation & inspection: normal inspection of the chest and normal palpation of entire chest wall <Felipe Keshawn, PA Last Filed: 03/01/23 01:03> Resp: Effort & Inspection: normal respiratory effort and able to speak in complete sentences <SAL Salazar Last Filed: 03/01/23 01:03> Cardio: Jugular venous distension: no JVD <Felipe Keshawn, PA Last Filed: 03/01/23 01:03> Heart sounds: S1 normal heart sound present and S2 normal heart sound present <Felipe Keshawn, PA Last Filed: 03/01/23 01:03> GI: Inspection: Yes normal to inspection and No abdominal wall ecchymosis <Felipe Keshawn, PA Quintin Filed: 03/01/23 01:03> Palpation (GI): Soft to palpation, not firm, nontender, no guarding and not rigid <Felipe Keshawn, PA Quintin Last Filed: 03/01/23 01:03> : General: No CVA tenderness and Yes no CVA tenderness <Felipe Keshawn, PA Last Filed: 03/01/23 01:03> Back/Spine/Pelvis: Back: no CVA tenderness, No CVA tenderness and back tenderness (left musclar back pain. no spine tenderness on palpation) <SAL Salazar Quintin Last Filed: 03/01/23 01:03> Skin: General skin exam: no rashes or lesions noted and elasticity normal <SAL Salazar Quintin Last Filed: 03/01/23 01:03> Neuro: General: oriented to person, oriented to place, oriented to time, patient oriented x3, gait normal, tone normal, moves all extremities, Normal light touch and pain sensation, no meningeal signs, no focal motor deficits, CN's II-XI intact bilaterally and normal sensation to monofilament <SAL Salazar Last Filed: 03/01/23 01:03> Extrem: General: Yes normal to inspection and Yes full ROM <SAL Salazar Last Filed: 03/01/23 01:03> Psych: Appearance: grossly normal, well kempt and not disheveled <SAL Salazar - Last Filed: 03/01/23 01:03> Course Course Course Narrative: RME: 22 yo M w/PMHx LLE prosthesis c/o left sided low back pain radiating to LUE s/p friend jumping on back on night after leaving gym. Reports pain exacerbated after working at [employer] today. Reports pain worse with movement/twisting and sitting. Denies fever/chills, hematuria, urinary incontinence/retention + left lower lumbar MSK tenderness to palpation. Ambulating with steady gait. X-rays, IM Toradol, Lidoderm patch ordered Full HPI, ROS and PE to be performed by primary ED provider. <SAL Saldivar - Last Filed: 02/28/23 20:02> Reevaluation(s) Reevaluation #1: Repeat Temperature is 99.1 oral. xrays negative for fractures. Initial temperature was done by temporal thermometer which is not accurate. spine xray shows retrolisthesis. Not suspecting epidural abscess or caudina equina syndrome. Patient to be discharged with pain meds. <SAL Salazar Last Filed: 03/01/23 01:03> Medications Administered Discontinued Medications Generic Name Dose Route Start Last Admin Trade Name Freq PRN Reason Stop Dose Admin Ketorolac Tromethamine 30 mg 02/28/23 19:57 02/28/23 20:18 Ketorolac Tromethamine 30 Mg/Ml Vial IM 02/28/23 19:58 30 mg ONCE ONE Administration Lidocaine 1 patch 02/28/23 19:57 02/28/23 20:19 Lidocaine 4 % Patch Adh..Patch TRANSDERMA 02/28/23 19:58 1 patch ONCE ONE Administration Protocol Prednisone 60 mg 02/28/23 21:38 02/28/23 21:45 Prednisone 20 Mg Tablet PO 02/28/23 21:39 60 mg ONCE ONE Administration <SAL Saldivar Last Filed: 02/28/23 20:02> Medications Administered Discontinued Medications Generic Name Dose Route Start Last Admin Trade Name Fer PRN Reason Stop Dose Admin Ketorolac Tromethamine 30 mg 02/28/23 19:57 02/28/23 20:18 Ketorolac Tromethamine 30 Mg/Ml Vial IM 02/28/23 19:58 30 mg ONCE ONE Administration Lidocaine 1 patch 02/28/23 19:57 02/28/23 20:19 Lidocaine 4 % Patch Adh..Patch TRANSDERMA 02/28/23 19:58 1 patch ONCE ONE Administration Protocol Prednisone 60 mg 02/28/23 21:38 02/28/23 21:45 Prednisone 20 Mg Tablet PO 02/28/23 21:39 60 mg ONCE ONE Administration <SAL Salazar Last Filed: 03/01/23 01:03> Medical Decision Making Medical Decision Making MDM Narrative: 22-year-old male presents to the ED for back pains worse on movement. Patient denies any abdominal pain, nausea, vomiting, flank pain, dysuria, hematuria, or testicular pain. Patient denies any urinary/bowel incontinence. Patient denies any history of IV drug use. Patient has normal use of lower extremities. <SAL Salazar - Last Filed: 03/01/23 01:03> Differential Diagnosis Differential Diagnoses: The differential diagnosis associated with the presentation includes (Spinal fracture, arthritis, epidural abscess, cauda equinus syndrome, UTI, kidney stones, pyelonephritis,) <SAL Salazar Last Filed: 03/01/23 01:03> Admission/Observation Consideration of admission/observation: Escalation of care including admission/observation considered <SAL Salazar Last Filed: 03/01/23 01:03> Independent Interpretation I performed an independent interpretation of an: Plain X-Ray <SAL Salazar Last Filed: 03/01/23 01:03> Radiology Impression Discussion of test interpretation with radiology: I have reviewed the radiologist's reading. <SAL Salazar Last Filed: 03/01/23 01:03> Prescription Management I considered prescription management with: Pain Medication <SAL Salazar Last Filed: 03/01/23 01:03> Discharge Plan Discharge Clinical Impression: Back pain, Retrolisthesis of vertebrae <SAL Saldivar Last Filed: 02/28/23 20:02> Patient Disposition: Home, Self-Care <SAL Saldivar Last Filed: 02/28/23 20:02> Instructions: Back Pain (ED) <SAL Saldivar Last Filed: 02/28/23 20:02> Additional Instructions: Return to the ED immediately for any urinary/bowel incontinence, paralysis of lower extremties, fever, abdominal pain, nausea, vomiting, flank pain, fever, chills, testicular pain, hematuria, dysuria, worsening back pain, or any other concerning symptoms. Please follow up with PCP <SAL Saldivar Last Filed: 02/28/23 20:02> Prescriptions: New naproxen 500 mg tablet 500 mg PO BID PRN (Reason: pain) 7 Days Qty: 14 0RF cyclobenzaprine 10 mg tablet 10 mg PO BEDTIME PRN (Reason: muscle spasm) 7 Days Qty: 7 0RF prednisone 20 mg tablet 40 mg PO DAILY 5 Days Qty: 10 0RF No Action naproxen 500 mg tablet 500 mg PO BID PRN (Reason: pain) Qty: 20 0RF cyclobenzaprine 10 mg tablet 10 mg PO TID PRN (Reason: pain) Qty: 18 0RF Rx Instructions: side effect is drowsiness. Do not take at work or while driving. Paxlovid (EUA) 300 mg (150 mg x 2)-100 mg tablets,dose pack See Rx Instructions .ROUTE .COMPLEX Qty: 30 0RF Rx Instructions: take TWO 150 mg tablets of nirmatrelvir with ONE 100 mg tablet of ritonavir twice daily for 5 days ibuprofen 600 mg tablet 600 mg PO TID PRN (Reason: fever or pain) Qty: 20 0RF <SAL Saldivar Last Filed: 02/28/23 20:02> Stand Alone Forms: Work/School Release <SAL Saldivar Last Filed: 02/28/23 20:02> Discharge Date/Time: 03/01/23 00:43 <SAL Saldivar Filed: 02/28/23 20:02> Print Language: Swedish <SAL Saldivar - Last Filed: 02/28/23 20:02>
[2023-02-28] MEDS: Ketorolac Tromethamine 30 MG/ML VIAL IM (20:18)
[2023-02-28] MEDS: Lidocaine 4 % Patch ADH..PATCH 1 PATCH TRANSDERMA (20:19)
--- NOTE | 2023-02-28 20:41 | PC.NURSE ---
pt medicated per DEC for 10/10 left sided back pain. XRAy taken, awaiting provider, call [facility] within reach
--- NOTE | 2023-02-28 21:32 | PC.NURSE ---
pt reporting 5/10 left sided back pain during PRN pain reassessment, imaging still pending call [facility] within reach
[2023-02-28] MEDS: predniSONE 20 MG TABLET 60 MG PO (21:45)
--- NOTE | 2023-02-28 22:55 | PC.NURSE ---
pt resting quietly in exam room, verbalizes that his pain has improved since lido patch., toradol, and prednisone administered. now rating pain 5/10. XR read still pending, call [facility] within reach
== END 2023-03-01 00:43 | disposition home or self-care (01) ==
PROVIDERS: Emergency Provider Student in an Organized Health Care Education/Training Program
DX: M54.50 Low back pain, unspecified (principal); M43.16 Spondylolisthesis, lumbar region; M54.6 Pain in thoracic spine; Z79.899 Other long term (current) drug therapy
CPT/HCPCS: 72072; 72100; 96372; 99283; 99284; J1885

== ENCOUNTER 2024-02-22 19:53 | Emergency (ER) | payer OTHER, SELFPAY ==
[2024-02-22 21:13] VITALS: BP 127/71; PULSE 84; RESP 16; TEMP 36.8; O2SAT 97; BMI 22.6
[2024-02-22 21:59] LABS: Appearance Urine Clear; Color Urine Yellow; Glucose Urine UA Negative (Negative); Leukocyte Esterase Urine Negative (Negative); Nitrite Urine Negative (Negative); PH 5.5 (5.0-9.0); Specific Gravity - Urine 1.025 (1.005-1.025); Urine Blood Negative (Negative); Urine Ketones Negative (Negative); Urine Protein Negative (Neg-Trace)
[2024-02-23 01:47] VITALS: BP 116/57; PULSE 71; RESP 16; TEMP 36.6; O2SAT 96
--- NOTE | 2024-02-23 02:39 | ED_ITS ---
HPI - Male Genitourinary General Chief complaint: Urogenital-Male Stated complaint: Chlamydia test Time Seen by Provider: 02/23/24 02:20 Source: patient Mode of arrival: ambulatory Limitations: no limitations History of Present Illness HPI Narrative: Patient comes to the emergency room concerned that his cheated on him. Patient's recently tested positive for chlamydia. About 10 months ago, patient's and was negative. patient states that he did not she would want her. However, she recently tested positive. He got tested himself a few days ago and it was negative for him. Patient is already being treated along with his with doxycycline. Patient does not have any symptoms Related Data Previous Rx's ?Medication ?Instructions ?Recorded cyclobenzaprine 10 mg tablet 10 mg PO TID PRN pain #18 tabs 05/20/21 naproxen 500 mg tablet 500 mg PO BID PRN pain #20 tabs 05/20/21 ibuprofen 600 mg tablet 600 mg PO TID PRN fever or pain 01/14/23 #20 tabs nirmatrelvir 300 mg (150 mg See Rx Instructions PO .COMPLEX 01/14/23 x2)-ritonavir 100 mg tablet,dose #30 ea pack (Paxlovid) cyclobenzaprine 10 mg tablet 10 mg PO BEDTIME PRN muscle spasm 03/01/23 7 days #7 tabs naproxen 500 mg tablet 500 mg PO BID PRN pain 7 days #14 03/01/23 tabs prednisone 20 mg tablet 40 mg (2 x 20 mg) PO DAILY 5 days 03/01/23 #10 tabs Allergies Allergy/AdvReac Type Severity Reaction Status Date / Time No Known Allergies Allergy Verified 02/22/24 21:15 Review of Systems Review of Systems: Constitutional : No Weight loss, No Fever, No Chills, No Night Sweats, No Fatigue, No Malaise ENT/Mouth : No Hearing loss, No Ear Pain, No Nasal Congestion, No Sinus Pain, No Hoarseness, No sore throat, No Rhinorrhea, No Swallowing Difficulty Eyes: No Eye Pain, No Swelling, No Redness, No Foreign Body, No Discharge, No Vision Changes Cardiovascular : No Chest Pain, No SOB, No Dyspnea on Exertion, No Orthopnea, No Edema, No Palpitations Respiratory : No Cough, No Sputum, No Wheezing, No Smoke Exposure, No Dyspnea Gastrointestinal : No Nausea, No Vomiting, No Diarrhea, No Constipation, No abdominal Pain, No Hematochezia, No Melena Genitourinary : no irregular bleeding, No Dysuria, No Urinary Frequency, No Hematuria, No Urinary Incontinence, No Urgency, No Flank Pain, No Urinary Flow Changes, No Hesitancy Musculoskeletal : No joint pain, No Myalgias, No Joint Swelling Skin : No Skin Lesions, No rash Neuro : No Weakness, No Numbness, No Paresthesias, No Loss of Consciousness, No Dizziness, No Headache Psych : No Anxiety/Panic, No Depression, No SI/HI/AH/VH, No Social Issues, Heme/Lymph: No Bruising, No Bleeding,No Lymphadenopathy Endocrine : No Polyuria, No Polydipsia, No Temperature Intolerance [facility] Social History Social History Alcohol intake: never Smoked in Last 30 Days: No Use of substances other than those prescribed or required for medical reasons: No Do you have a plan to hurt others: No Plan Physical Exam Vital Signs: Vital Signs: Last Vital Signs Temp 97.8 F 02/23/24 01:47 Pulse 71 02/23/24 01:47 Resp 16 02/23/24 01:47 BP 116/57 L 02/23/24 01:47 Pulse Ox 96 02/23/24 01:47 O2 Del Method Room Air 02/23/24 01:47 BMI result Body Mass Index 22.6 Const: Other: Appearance: Alert. Oriented X3. No acute distress. Eyes: Pupils equal, round and reactive to light. ENT: Pharynx normal. Neck: Normal inspection. Neck supple. No lymph nodes noted. No crepitus CVS: Normal heart rate and rhythm. Pulses normal. Normal S1 and S2 Respiratory: No respiratory distress. Breath sounds normal. No Wheezing. No rales Abdomen: Soft and nontender. No rigidity. No distention. Skin: Skin warm and dry. Normal skin color. Normal skin turgor. Extremities: No lower extremity edema. No Lacerations. No Rash Neuro: Oriented X 3. No motor deficit. No sensory deficit. Moving all extremities. No slurred speech. CN 2 through 12 grossly intact Psych: calm, cooperative, normal affect Medical Decision Making Medical Decision Making MDM Narrative: patient wants to know if his cheated on him. Patient's is here as well as the patient. Both are adamant that they have not she did on each other. Discussed with the patient and his that sometimes false-positive tests do occur. The her scores of action at this time is to repeat the chlamydia test. There is a fair chance that both test may be negative this time because they have already been treated several days for chlamydia. also discussed that it may be possible that when the patient tested the 1st time negative, she may had already been exposed to chlamydia. The test came negative and eventually throughout the next few days turn positive but was never tested. There are several possibilities, if needed when she did, that the test was A falls positive. - both parties already being treated. They do not require any further antibio tic. Lab Data Labs: Lab Results 02/22/24 Range/Units 21:48 Urine Color Yellow Urine Appearance Clear Urine pH 5.5 (5.0-9.0) Ur Specific [place] 1.025 (1.005-1.025) Urine Protein Negative (Neg-Trace) mg/dL Urine Glucose (UA) Negative (Negative) mg/dL Urine Ketones Negative (Negative) mg/dL Urine Blood Negative (Negative) Urine Nitrite Negative (Negative) Ur Leukocyte Esterase Negative (Negative) Discharge Plan Discharge Clinical Impression: Sexual counseling Patient Disposition: Home, Self-Care Instructions: Safe Sex Practices (ED) Additional Instructions: Please follow-up with your primary care physician tomorrow. If you have any worsening or new symptoms, please return to the emergency room or call 911 Prescriptions: No Action naproxen 500 mg tablet 500 mg PO BID PRN (Reason: pain) Qty: 20 0RF cyclobenzaprine 10 mg tablet 10 mg PO TID PRN (Reason: pain) Qty: 18 0RF Rx Instructions: side effect is drowsiness. Do not take at work or while driving. Paxlovid 300 mg (150 mg x 2)-100 mg tablets,dose pack See Rx Instructions .ROUTE .COMPLEX Qty: 30 0RF Rx Instructions: take TWO 150 mg tablets of nirmatrelvir with ONE 100 mg tablet of ritonavir twice daily for 5 days ibuprofen 600 mg tablet 600 mg PO TID PRN (Reason: fever or pain) Qty: 20 0RF naproxen 500 mg tablet 500 mg PO BID PRN (Reason: pain) 7 Days Qty: 14 0RF cyclobenzaprine 10 mg tablet 10 mg PO BEDTIME PRN (Reason: muscle spasm) 7 Days Qty: 7 0RF prednisone 20 mg tablet 40 mg PO DAILY 5 Days Qty: 10 0RF Print Language: Welsh
--- OUTSIDE RECORDS SUMMARY | 2024-02-23 02:49 | XMS_ITS | Referral Summary ---
Author Organization [facility] Address [address] [place] [id number] Care Team Providers Care Last Repairer Name Role Phone PCP, None Primary Care Physician Unavailab le Encounter 03/23/23 - 03/23/[address] [phone] [facility] [phone] Discharge Disposition: 01 Home (with or w/o IV fusion or DME) Attending Physician: All HUANG, Thom Murphy. 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
--- OUTSIDE RECORDS SUMMARY | 2024-02-23 02:49 | XMS_ITS | Continuity of Care Document ---
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
1 cap(s), 10 mg, Capsule Extended Release, Oral, QAM, Number of Refills: 0 Active 018 [facility] Allergies, Adverse Reactions, Alerts Substance Category Reaction Severity Reaction type Status Date Reported Comments Source penicillin Drug allergy rash [facility] cefepime Drug allergy rash [facility] cephalosporins Drug allergy rash [facility] cephalosporins Drug allergy rash [facility] Immunizations Immunization Date Given Site Status Last Updated Comments So urce Results Order Name Results Value Reference Range Date Interpretatio n Comments Source Vital Signs Vital Sign Value Date Comments Source Height NOT Growth Chart 166.8 cm 05/11/2022 [facility] Converted Height NOT Growth Chart 5.5 [ft_i] 05/11/2022 [facility] ital Weight NOT Growth Chart 59.8 kg 05/11/2022 [facility] Body surface area 1.6646 m2 05/11/2022 [facility] Converted Weight NOT Growth Chart 131.84 [lb_ap] 05/11/2022 [facility] ital Body Mass Index NOT Growth Chart 21 05/11/2022 [facility] ital Height in cms. 166.8 cm 05/11/2022 [facility] Weight in kgs 59.8 kg 05/11/2022 [facility] Body Mass Index 21.49 kg/m2 05/11/2022 [facility] Encounters Location Location Details Encounter Type Encounter Number Reason For Visit Attending Provider ADM Date DC Date Status Source [facility] Pre-Reg [id number] Giuseppe Villalta MD 02/24 [facility] [id number] Giuseppe Villalta MD 05/11 [facility] Thom HUANG 03/23 [facility] Procedures Procedure Code Date Perfomer Comments Source
--- OUTSIDE RECORDS SUMMARY | 2024-02-23 02:50 | XMS_ITS | Referral Summary ---
Author Organization [facility] Address [address] [place] [id number] Care Team Providers Care Tourist Agent Name Role Phone PCP, None Primary Care Physician Unavailab le Encounter 03/23/23 - 03/23/[address] [phone] [facility] [phone] Discharge Disposition: 01 Home (with or w/o [...]
[2024-02-23 03:02] VITALS: BP 99/57; PULSE 65; RESP 18; TEMP 36.8; O2SAT 99
[2024-02-23 12:22] LABS: CT PCR NOT DETECTED (Not Detect.); NG PCR NOT DETECTED (Not Detect.)
== END 2024-02-23 03:03 | disposition home or self-care (01) ==
PROVIDERS: Emergency Provider Emergency Medicine
DX: Z20.2 Contact with and (suspected) exposure to infections with a predominantly sexual mode of transmission (principal)
CPT/HCPCS: 0353U; 81003; 99283; 99284

== ENCOUNTER 2025-01-09 12:25 | Emergency (ER) | payer OTHER, SELFPAY ==
--- NOTE | ~2025-01-09 | XR_ITS ---
EXAMINATION: XR TIBIA FIBULA 2 VIEWS RIGHT HISTORY: pain, trauma COMPARISON: There are no prior studies available for comparison. FINDINGS: AP and lateral views of the right tibia and fibula are submitted. Osseous mineralization is normal. There is no fracture or dislocation. The visualized knee and ankle joint spaces are preserved. The soft tissues are unremarkable. XR/XR tibia fibula RT 2V IMPRESSION: Unremarkable examination of the right tibia and fibula. Electronically signed by: Michael Batista MD 01/09/2025 01:04 PM EDT
[2025-01-09 12:26] VITALS: BP 107/54; PULSE 72; RESP 20; TEMP 36.2; O2SAT 98; BMI 22.7
--- NOTE | 2025-01-09 12:31 | ED_ITS ---
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 He developed focal swelling at the site. Patient states the discomfort and swelling have gotten acutely worse over the past day. Denies fever. Denies drainage from the site. Related Data Previous Rx's ?Medication ?Instructions ?Recorded cyclobenzaprine 10 mg tablet 10 mg PO TID PRN pain #18 tabs 05/20/21 naproxen 500 mg tablet 500 mg PO BID PRN pain #20 tabs 05/20/21 ibuprofen 600 mg tablet 600 mg PO TID PRN fever or pain 01/14/23 #20 tabs nirmatrelvir 300 mg (150 mg See Rx Instructions PO .COMPLEX 01/14/23 x2)-ritonavir 100 mg tablet,dose #30 ea pack (Paxlovid) cyclobenzaprine 10 mg tablet 10 mg PO BEDTIME PRN muscle spasm 03/01/23 7 days #7 tabs naproxen 500 mg tablet 500 mg PO BID PRN pain 7 days #14 03/01/23 tabs prednisone 20 mg tablet 40 mg (2 x 20 mg) PO DAILY 5 days 03/01/23 #10 tabs Allergies Allergy/AdvReac Type Severity Reaction Status Date / Time No Known Allergies Allergy Verified 01/09/25 12:30 Review of Systems 2 Review of Systems: Yes all other systems are reviewed and are negative Constitutional: Constitutional: Denies fever(s) Cardiovascular: Cardiovascular: Denies chest pain and Denies dyspnea Respiratory: Respiratory: Denies dyspnea Gastrointestinal: Gastrointestinal: Denies abdominal pain Musculoskeletal: Musculoskeletal: Reports arthralgias and Reports joint swelling Integumentary/Breasts: Skin/Breast: Reports erythema and Reports skin swelling PMFSH Past Medical History Attestation statement: The following information was validated with the patient. Social History Social History Alcohol intake: never Advance Directives: No Advance Directives Information Provided: No Do you have a plan to hurt others: No Plan Physical Exam ED Vital Signs: Vital Signs - 24 hr 01/09/25 12:26 01/09/25 14:47 Temperature 97.2 F 98.1 F Pulse Rate 72 68 Respiratory Rate 20 20 Blood Pressure 107/54 L 122/55 L Pulse Oximetry 98 96 Oxygen Delivery Method Room Air Room Air BMI result Body Mass Index 22.7 Const Other: Alert Orientation/consciousness: patient oriented x3 Resp Effort & Inspection: normal respiratory effort Cardio Other: Normal peripheral perfusion Skin Other: Warm dry no rash Neuro General: patient oriented x3, gait normal, no focal motor deficits and CN's II- XI intact bilaterally Extrem Other: Subtle Tender swelling noted right mid lechuga, overlying pink skin discoloration, it was not warm to touch no active drainage Psych Other: Cooperative Course Course Course Narrative: This is a rapid medical exam performed by Lizzie Hansen PA-C. Patient is a 24-year-old male who sustained an injury to the right lechuga on December 08. He developed swelling at the site that is focal at that time. Patient states the discomfort in the swelling have gotten acutely worse over the past day. Denies fever. Denies drainage from the site. On exam the patient has a tender firm swelling over mid lechuga. We will be screening basic labs, and an x-ray. The patient was never assessed after the initial trauma. 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 The patient was stable and can return to the waiting room pending his full medical assessment. 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 He developed focal swelling at the site. Patient states the discomfort and swelling have gotten acutely worse over the past day. Denies fever. Denies drainage from the site. Problem: Childhood cancer History: Per patient I have considered the following differential diagnoses: Fracture, dislocation, partial muscle tear, hematoma, cellulitis, abscess, DVT, lytic lesion Plan: Patient here with a overall unremarkable exam, he likely has some bleeding under the skin, maybe had a partial muscle tear, but he has been ambulating normally. This is not consistent with cellulitis or abscess, it was not indurated it was not warm it was not overtly erythematous. This is not a DVT, the limbs are symmetric, the trauma he sustained was over the lechuga, there was no indication for a Doppler study. I will obtain x-rays to be sure there was no lytic lesion given the prolonged period of symptoms he is experiencing. We will treat with ibuprofen and Tylenol I have independently reviewed the following tests: right tib/fib: FINDINGS: AP and lateral views of the right tibia and fibula are submitted. Osseous mineralization is normal. There is no fracture or dislocation. The visualized knee and ankle joint spaces are preserved. The soft tissues are unremarkable. XR/XR tibia fibula RT 2V IMPRESSION: Unremarkable examination of the right tibia and fibula. Lab Data 01/09/25 13:08 01/09/25 13:08 Labs: Lab Results 01/09/25 Range/Units 13:08 WBC 8.6 (4.8-10.8) X10*3/uL RBC 4.47 L (4.60-5.80) X10*6/uL Hgb 13.4 L (14.0-18.0) g/dl Hct 39.3 L (42.0-52.0) % MCV 87.9 (80.0-98.0) fL MCH 30.0 (27.0-33.0) pg MCHC 34.1 (31.0-36.0) g/dl RDW 12.5 (11.0-16.0) % Plt Count 282 (160-400) X10*3/uL MPV 10.5 (9.4-12.4) fL Immature Gran % (Auto) 0.2 (0.0-0.4) % Neut % (Auto) 62.7 (45-73) % Lymph % (Auto) 28.6 (20-40) % Snyder % (Auto) 6.3 (2-11) % Eos % (Auto) 1.6 (0-4) % Baso % (Auto) 0.6 (0-2) % Lymph # (Auto) 2.5 (1.2-4.9) X10*3/uL Snyder # (Auto) 0.5 (0.1-1.2) X10*3/uL Eos # (Auto) 0.1 (0.0-0.4) X10*3/uL Baso # (Auto) 0.1 (0.0-0.2) X10*3/uL Abs Immat Gran (auto) 0.02 (0.00-0.03) X10*3/uL Absolute Neuts (auto) 5.4 (2.0-8.3) x10*3/uL Absolute Nucleated RBC 0.000 (0.0-0.012) X10*3/uL Nucleated RBC % (auto) 0.0 (0.0-0.2) /100WBC ESR 7 (0-15) MM/HR Sodium 141 (135-145) mmol/L Potassium 4.2 (3.3-5.1) mmol/L Chloride 111 H (96-108) mmol/L Carbon Dioxide 22 (22-29) mmol/L Anion Gap 12 (12-20) BUN 17 H (9-16) mg/dL Creatinine 0.74 (0.5-1.4) mg/dL Estim Creat Clear Calc 130.0 Estimated GFR > 60 Random Glucose 102 (60-115) mg/dL Calcium 9.3 (8.4-10.2) mg/dL Magnesium 2.0 (1.6-2.6) mg/dL C-Reactive Protein 0.25 (< or = 0.50) mg/dL Discharge Plan Discharge Clinical Impression: Contusion of bone Patient Disposition: Home, Self-Care Instructions: Bone Bruise (ED) Additional Instructions: The x-ray of the lechuga is negative for fracture, there were no concerning changes that would be consistent with a new cancer. See home care instructions, we are treating you for a suspect bone bruise. While working, use a compression stocking to help with your discomfort and swelling. While resting elevate the leg to alleviate swelling. Ice the area several times a day. You can use [id number] ibuprofen 600 mg taken every 6 hours with food, with [id number] Tylenol 1000 mg taken every 8 hours. Follow up with your primary care provider as needed. Prescriptions: No Action naproxen 500 mg tablet 500 mg PO BID PRN (Reason: pain) Qty: 20 0RF cyclobenzaprine 10 mg tablet 10 mg PO TID PRN (Reason: pain) Qty: 18 0RF Rx Instructions: side effect is drowsiness. Do not take at work or while driving. Paxlovid 300 mg (150 mg x 2)-100 mg tablets,dose pack See Rx Instructions .ROUTE .COMPLEX Qty: 30 0RF Rx Instructions: take TWO 150 mg tablets of nirmatrelvir with ONE 100 mg tablet of ritonavir twice daily for 5 days ibuprofen 600 mg tablet 600 mg PO TID PRN (Reason: fever or pain) Qty: 20 0RF naproxen 500 mg tablet 500 mg PO BID PRN (Reason: pain) 7 Days Qty: 14 0RF cyclobenzaprine 10 mg tablet 10 mg PO BEDTIME PRN (Reason: muscle spasm) 7 Days Qty: 7 0RF prednisone 20 mg tablet 40 mg PO DAILY 5 Days Qty: 10 0RF Print Language: Slovenian
[2025-01-09 13:12] LABS: MANUAL DIFF FLAG NO
[2025-01-09 13:14] LABS: Basophils Absolute Auto 0.1 X10*3/uL (0.0-0.2); Basophils Percent Auto 0.6 % (0-2); Eosinophils Absolute Auto 0.1 X10*3/uL (0.0-0.4); Eosinophils Percent Auto 1.6 % (0-4); Hematocrit 39.3 % (42.0-52.0); Hemoglobin 13.4 g/dl (14.0-18.0); Imm Gran Abs Auto 0.02 X10*3/uL (0.00-0.03); Imm Gran Pct Auto 0.2 % (0.0-0.4); Lymphocytes Absolute Auto 2.5 X10*3/uL (1.2-4.9); Lymphocytes Percent Auto 28.6 % (20-40); Mean Corpuscular HGB Conc 34.1 g/dl (31.0-36.0); Mean Corpuscular Volume 87.9 fL (80.0-98.0); Mean Platelet Volume 10.5 fL (9.4-12.4); Monocytes Absolute Auto 0.5 X10*3/uL (0.1-1.2); Monocytes Percent Auto 6.3 % (2-11); Neutrophils Absolute Auto 5.4 x10*3/uL (2.0-8.3); Neutrophils Percent Auto 62.7 % (45-73); Platelet Count 282 X10*3/uL (160-400); Red Blood Count 4.47 X10*6/uL (4.60-5.80); Red Cell Distribution Width 12.5 % (11.0-16.0); White Blood Count 8.6 X10*3/uL (4.8-10.8)
[2025-01-09 13:30] LABS: Anion Gap 12 (12-20); Blood Urea Nitrogen 17 mg/dL (9-16); C Reactive Protein 0.25 mg/dL (< or = 0.50); Calcium 9.3 mg/dL (8.4-10.2); Carbon Dioxide 22 mmol/L (22-29); Chloride 111 mmol/L (96-108); Estimated Glomerular Filt Rate > 60; Glucose Random 102 mg/dL (60-115); Potassium 4.2 mmol/L (3.3-5.1); Sodium 141 mmol/L (135-145)
[2025-01-09 13:52] LABS: Erythrocyte Sedimentation Rate 7 MM/HR (0-15)
[2025-01-09 14:47] VITALS: BP 122/55; PULSE 68; RESP 20; TEMP 36.7; O2SAT 96
[2025-01-09] MEDS: Acetaminophen 325 MG TABLET 975 MG PO (14:53)
[2025-01-09] MEDS: Ibuprofen 600 MG TABLET PO (14:54)
[2025-01-09 14:57] VITALS: BP 122/55; PULSE 68; RESP 20; TEMP 36.7; O2SAT 96
== END 2025-01-09 14:58 | disposition home or self-care (01) ==
PROVIDERS: Physician Assistant Medical; Emergency Provider Emergency Medicine
DX: S80.11XA Contusion of right lower leg, initial encounter (principal); X58.XXXA Exposure to other specified factors, initial encounter; Y93.9 Activity, unspecified; Y92.9 Unspecified place or not applicable; Y99.9 Unspecified external cause status; M79.661 Pain in right lower leg; Z85.830 Personal history of malignant neoplasm of bone
CPT/HCPCS: 36415; 73590; 80048; 83735; 85025; 85652; 86140; 99283

== ENCOUNTER → 2025-01-09 12:29 | Outpatient (BNV) | payer OTHER, SELFPAY | PROVIDERS: Visit Provider Radiology Diagnostic Radiology | DX: M79.661 Pain in right lower leg (principal) | CPT/HCPCS: 73590 ==

== ENCOUNTER 2025-03-19 14:28 | Emergency (ER) | payer OTHER, SELFPAY ==
--- NOTE | ~2025-03-19 | XR_ITS ---
CLINICAL HISTORY: trauma --- Additional Notes or Special Instructions: 1st toe Right 1st toe three views Comparison: None Findings: No acute fracture or dislocation identified. No acute focal bony abnormality. No radiopaque foreign body noted. Impression: No acute bony abnormality This document has been electronically signed by: Bobby Cottno MD on 03/19/2025 17:34:32
--- NOTE | 2025-03-19 14:45 | ED_ITS ---
HPI - General Adult General Chief complaint: General Medical Stated complaint: Toenail Pain Time Seen by Provider: 03/19/25 18:04 Source: patient Limitations: no limitations History of Present Illness ED Provider: Lizzie Hansen PA-C HPI narrative: 24-year-old male presents with right great toe pain. Patient states he stubbed his toe, lifting the nail, incident occurred yesterday. Patient states the nails painful, he is unable to cut the nail himself. Related Data Previous Rx's ?Medication ?Instructions ?Recorded cyclobenzaprine 10 mg tablet 10 mg PO TID PRN pain #18 tabs 05/20/21 naproxen 500 mg tablet 500 mg PO BID PRN pain #20 tabs 05/20/21 ibuprofen 600 mg tablet 600 mg PO TID PRN fever or pain 01/14/23 #20 tabs nirmatrelvir 300 mg (150 mg See Rx Instructions PO .COMPLEX 01/14/23 x2)-ritonavir 100 mg tablet,dose #30 ea pack (Paxlovid) cyclobenzaprine 10 mg tablet 10 mg PO BEDTIME PRN muscle spasm 03/01/23 7 days #7 tabs naproxen 500 mg tablet 500 mg PO BID PRN pain 7 days #14 03/01/23 tabs prednisone 20 mg tablet 40 mg (2 x 20 mg) PO DAILY 5 days 03/01/23 #10 tabs Allergies Allergy/AdvReac Type Severity Reaction Status Date / Time No Known Allergies Allergy Verified 03/19/25 14:48 Review of Systems Review of Systems: Yes all other systems are reviewed and are negative Constitutional: Constitutional: Denies fatigue and Denies fever(s) Musculoskeletal: Musculoskeletal: Reports arthralgias and Denies joint swelling Endocrine: Endocrine: Denies fatigue [facility] Past Medical History Attestation statement: The following information was validated with the patient. Social History Social History Alcohol intake: never Smoked in Last 30 Days: No Use of substances other than those prescribed or required for medical reasons: No Advance Directives: No Advance Directives Information Provided: No Physical Exam ED Vital Signs: Vital Signs - 24 hr 03/19/25 14:46 03/19/25 15:52 03/19/25 20:13 Temperature 98 F 98 F 98 F Pulse Rate 62 66 66 Respiratory Rate 16 18 18 Blood Pressure 95/36 L 112/54 L 112/54 L Pulse Oximetry 98 98 98 Oxygen Delivery Method Room Air Room Air Room Air BMI result Body Mass Index 22.1 Const Other: Alert Orientation/consciousness: patient oriented x3 Resp Effort & Inspection: normal respiratory effort Cardio Other: Normal peripheral perfusion Skin Other: Warm dry no rash Neuro General: patient oriented x3, gait normal, no focal motor deficits and CN's II- XI intact bilaterally Extrem Other: The nail is lifting distally over the right great toe, the bed itself is intact there was no wound there was no bleeding Psych Other: Cooperative Course Course Course Narrative: RME, this is a rapid medical exam performed by Latrell Riley please refer to primary provider for complete H&P- 24 year old male presents for evaluation of right great toe pain. He reports that he was wearing sandals when his toes went through the tip of the sandal and he stubbed it against someone else's foot. The nail lifted up. Injury happened yesterday. Plan for x-ray Medications Administered Discontinued Medications Generic Name Dose Route Start Last Admin Trade Name Freq PRN Reason Stop Dose Admin Lidocaine/Epinephrine 10 ml 03/19/25 18:18 03/19/25 18:42 Lidocaine Hcl 1%/Epi 1:100,000 20 Ml Vial INFILTRATI 03/19/25 18:19 10 ml ONCE ONE Administration Procedures Procedure Narrative Procedure Narrative: Procedure to cut back toenail. Site was cleaned with Betadine solution, aseptic technique utilized. Nerve block administered using 1% lidocaine with epi, 3 mL total. The nail was cut pad using scissors. The patient tolerated the procedure well. Medical Decision Making Medical Decision Making [facility] Narrative: 24-year-old male presents with right great toe pain. Patient states he stubbed his toe, lifting the nail, incident occurred yesterday. Patient states the nails painful, he is unable to cut the nail himself. No chronic issues History: Per patient I have considered the following differential diagnoses: Toenail injury, avulsion, laceration, contusion, fracture, dislocation Plan: X-ray obtained from triage, there was no bony injury, plan to perform digital block for comfort and trim the nail. I have independently reviewed the following tests: X-ray right foot:Findings: No acute fracture or dislocation identified. No acute focal bony abnormality. No radiopaque foreign body noted. Impression: No acute bony abnormality Discharge Plan Discharge Clinical Impression: Traumatic loss of toenail of right great toe Patient Disposition: Home, Self-Care Additional Instructions: The nail was cut back where it was lifted. Keep the area clean and dry, it should grow back normally. Follow up with primary care as needed. Prescriptions: No Action naproxen 500 mg tablet 500 mg PO BID PRN (Reason: pain) Qty: 20 0RF cyclobenzaprine 10 mg tablet 10 mg PO TID PRN (Reason: pain) Qty: 18 0RF Rx Instructions: side effect is drowsiness. Do not take at work or while driving. Paxlovid 300 mg (150 mg x 2)-100 mg tablets,dose pack See Rx Instructions .ROUTE .COMPLEX Qty: 30 0RF Rx Instructions: take TWO 150 mg tablets of nirmatrelvir with ONE 100 mg tablet of ritonavir twice daily for 5 days ibuprofen 600 mg tablet 600 mg PO TID PRN (Reason: fever or pain) Qty: 20 0RF naproxen 500 mg tablet 500 mg PO BID PRN (Reason: pain) 7 Days Qty: 14 0RF cyclobenzaprine 10 mg tablet 10 mg PO BEDTIME PRN (Reason: muscle spasm) 7 Days Qty: 7 0RF prednisone 20 mg tablet 40 mg PO DAILY 5 Days Qty: 10 0RF Stand Alone Forms: Work/School Release Interventions: ED Discharge Assessment Last Done: 03/19/25 20:13 Discharge Date/Time: 03/19/25 20:14 Print Language: Amharic
[2025-03-19 14:46] VITALS: BP 95/36; PULSE 62; RESP 16; TEMP 36.6; O2SAT 98; BMI 22.1
--- OUTSIDE RECORDS SUMMARY | 2025-03-19 15:47 | XMS_ITS | Clinical Summary ---
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 Social History Tobacco Use Types Packs/Day Years Used Date Smoking Tobacco: Never Smokeless Tobacco: Never Tobacco Cessation:Counseling Given: No Alcohol Use Standard Drinks/Week Comments Never 0 (1 standard drink = 0.6 oz pur e alcohol) Sex and Gender Information Value Date Recorded Sex Assigned at Male 08/03/2022 8:17 PM EDT Legal Sex Male 8:17 PM EDT Gender Identity Not on file Sexual Orientation Not on file Last Filed Vital Signs Vital Sign Reading Time Taken Comments Blood Pressure - - Pulse - - Temperature - - Respiratory Rate - - Oxygen Saturation - - Inhaled Oxygen Concentration - - Weight 54.7 kg (120 lb 9.5 oz) 03/23/2023 12:48 PM EDT Height 168 cm (5' 6.14 ) 03/23/2023 12:48 PM EDT Body Mass Index 19.38 03/23/2023 12:48 PM EDT Plan of Treatment Not on file Insurance MEDICAID OF [place] [facility] Care Teams Visual Merchandise Manager Relationship Specialty Start Date End Date Pcp, None [address] [place] [address] PCP - General 03/23/23
[2025-03-19 15:52] VITALS: BP 112/54; PULSE 66; RESP 18; TEMP 36.6; O2SAT 98
--- NOTE | 2025-03-19 17:34 | PC.NURSE ---
right freat toe nail is split horizontally about midway down the nail. no bleeding. brisk cap refill of distal tissue. NAD.
[2025-03-19] MEDS: Lidocaine HCl 1%/Epi 1:100,000 20 ML VIAL 10 ML INFILTRATI (18:42)
[2025-03-19 20:13] VITALS: BP 112/54; PULSE 66; RESP 18; TEMP 36.6; O2SAT 98
== END 2025-03-19 20:14 | disposition home or self-care (01) ==
PROVIDERS: Emergency Provider Emergency Medicine
DX: M79.674 Pain in right toe(s) (principal); S99.821A Other specified injuries of right foot, initial encounter; W51.XXXA Accidental striking against or bumped into by another person, initial encounter; Y93.9 Activity, unspecified; Y92.9 Unspecified place or not applicable; Y99.9 Unspecified external cause status
CPT/HCPCS: 11730; 73660; 99284; J2004

== ENCOUNTER → 2025-03-19 14:46 | Outpatient (BNV) | payer OTHER, SELFPAY | PROVIDERS: Visit Provider Radiology Diagnostic Radiology | DX: M79.674 Pain in right toe(s) (principal) | CPT/HCPCS: 73660 ==